=== PATIENT | female | born 1990 | race Caucasian/White ===

== ENCOUNTER 2019-06-29 11:23 | Inpatient (IN) ==
[2019-06-29] MEDS ORDERED: Acetaminophen 325 MG TABLET PO PRN (15:12)
[2019-06-29] MEDS ORDERED: Ondansetron ODT 4 MG TAB.RAPDIS SL PRN (15:12)
[2019-06-29] MEDS ORDERED: Naloxone 0.4 MG/ML INJ IVP PRN ×2 (15:12→18:16)
[2019-06-29] MEDS ORDERED: Ketorolac 15 MG/ML VIAL IVP PRN ×2 (15:12→18:16)
[2019-06-29] MEDS ORDERED: *HR* FentaNYL (PF) 100 MCG/2 ML VIAL ONE (16:20)
[2019-06-29] MEDS ORDERED: *HR* Midazolam HCl 2 MG/2 ML VIAL ONE (16:20)
[2019-06-29] MEDS ORDERED: *HR* Propofol 200 MG/20 ML VIAL IVP ONE (16:20)
[2019-06-29] MEDS ORDERED: Dexamethasone 4 MG/ML VIAL ONE (16:21)
[2019-06-29] MEDS ORDERED: Lidocaine -MPF 2% 2 ML VIAL ONE (16:21)
[2019-06-29] MEDS ORDERED: Ondansetron 4 MG/2 ML VIAL ONE (16:21)
[2019-06-29] MEDS ORDERED: Isovue-300 50ML VIAL ONE (16:34)
[2019-06-29] MEDS ORDERED: *HR* Succinylcholine 200 MG/10 ML VIAL IVP ONE (16:47)
[2019-06-29] MEDS ORDERED: *HR* Rocuronium Bromide 50 MG/5 ML VIAL ONE (16:47)
[2019-06-29] MEDS ORDERED: Lidocaine HCL 4 ML Topical Solution (Laryng-O-Jet Kit Sterile Pak) TP ONE (16:48)
[2019-06-29] MEDS ORDERED: *HR* PHENYLEPHRINE 1,000 MCG/10 ML SYRINGE IVP ONE (17:01)
[2019-06-29] MEDS ORDERED: *HR* Promethazine 25 MG/ML VIAL IVP PRN ×2 (17:25→18:16)
[2019-06-29] MEDS ORDERED: Acetaminophen IV 1,000 MG/100 ML INFUS..BTL IVPB ONE ×2 (17:25→18:16)
[2019-06-29] MEDS ORDERED: *HR* HYDROmorphone (PF) 1 MG/ML SYRINGE IVP PRN ×2 (17:25→18:16)
[2019-06-29] MEDS ORDERED: Ondansetron 4 MG/2 ML VIAL IVP ONE ×2 (17:25→18:16)
[2019-06-29] MEDS ORDERED: *HR* Meperidine 25 MG/ML SYRINGE IVP PRN ×2 (17:25→18:16)
[2019-06-29] MEDS ORDERED: Ketorolac 30 MG/ML VIAL IVP ONE ×2 (17:25→18:16)
[2019-06-29] MEDS ORDERED: Albuterol 2.5 MG/3 ML NEBULIZER IH ONE ×2 (17:25→18:16)
[2019-06-29] MEDS ORDERED: *HR* OxyCODONE Immed Rel 5 MG TABLET PO PRN ×2 (17:25→18:16)
[2019-06-29] MEDS ORDERED: 0.9 % Sodium Chloride 1,000 ML IVC SCH (18:00)
[2019-06-29] MEDS: *HR* HYDROcodone/Acet 5/325 mg TABLET PO PRN (18:36)
[2019-06-29] MEDS: 0.9 % Sodium Chloride 1,000 ML IVC SCH (22:52)
[2019-06-30 04:22] LABS: Hematocrit 30.5 % (35.3-44.9); Hemoglobin 10.6 g/dL (11.5-15.4); Mean Corpuscular HGB Conc 34.8 g/dL (31.6-35.5); Mean Corpuscular Hemoglobin 31.2 pg (28.0-33.3); Mean Corpuscular Volume 89.7 fL (83.0-100.0); Mean Platelet Volume 10.8 fL (9.4-12.4); Platelet Count 120 K/mcL (140-400); Red Cell Distribution Width 12.9 % (11.5-14.5); White Blood Count 13.2 K/mcL (4.3-11.1)
[2019-06-30] MEDS: *HR* HYDROcodone/Acet 5/325 mg TABLET PO PRN ×3 (04:32→12:26)
[2019-06-30 04:38] LABS: BUN/Creatinine Ratio 12 (6-26); Blood Urea Nitrogen 8 mg/dL (6-20); Calcium 8.9 mg/dL (8.6-10.3); Carbon Dioxide 21 mEq/L (23-29); Chloride 114 mEq/L (98-107); Glucose 169 mg/dL (70-105); Osmolality,Calculated 290 (280-300); Potassium 3.8 mEq/L (3.5-5.1); Sodium 139 mEq/L (136-145); eGFR For African Americans > 60 (> 60); eGFR For Non-African Americans > 60 (> 60)
[2019-06-30 05:31] LABS: Lymphocytes # 0.8 K/mcL (0.6-4.6); Monocytes # 0.5 K/mcL (0.0-1.3); Neutrophils # 11.9 K/mcL (1.6-8.9)
[2019-06-30 05:32] LABS: Platelet Estimate Normal (Normal)
[2019-06-30 05:44] LABS: Enterococcus by PCR Not Detected (Not Detect); Staphylococcus by PCR Not Detected (Not Detect); blaKPC Carbapenem-Resist Gene Not Detected (Not Detect); mecA Methicillin-Resist Gene Not Detected (Not Detect); vanA/B Vancomycin-Resist Genes Not Detected (Not Detect)
[2019-06-30 05:45] LABS: Acinetobacter baumannii by PCR Not Detected (Not Detect); Candida albicans by PCR Not Detected (Not Detect); Candida glabrata by PCR Not Detected (Not Detect); Candida krusei by PCR Not Detected (Not Detect); Candida parapsilosis by PCR Not Detected (Not Detect); Candida tropicalis by PCR Not Detected (Not Detect); Enterobacter cloacae Cmplx PCR Not Detected (Not Detect); Escherichia coli by PCR DETECTED (Not Detect); Klebsiella oxytoca by PCR Not Detected (Not Detect); Klebsiella pneumoniae by PCR Not Detected (Not Detect); Proteus by PCR Not Detected (Not Detect); Pseudomonas aeruginosa by PCR Not Detected (Not Detect); Serratia marcescens by PCR Not Detected (Not Detect); Staphylococcus aureus by PCR Not Detected (Not Detect); Streptococcus agalactiae(B)PCR Not Detected (Not Detect); Streptococcus by PCR Not Detected (Not Detect); Streptococcus pneumoniae PCR Not Detected (Not Detect); Streptococcus pyogenes (A) PCR Not Detected (Not Detect)
[2019-06-30] MEDS: 0.9 % Sodium Chloride 1,000 ML IVC SCH ×2 (06:43→18:52)
[2019-06-30] MEDS: levoFLOXacin 750 MG/150 ML 750 MG/150 ML BAG IVPB SCH (08:45)
[2019-06-30] MEDS ORDERED: levoFLOXacin 750 MG/150 ML 750 MG/150 ML BAG IVPB SCH (09:00)
[2019-06-30] MEDS ORDERED: Bisacodyl 10 MG RECTAL SUPPOSITORY RC PRN (16:04)
[2019-06-30] MEDS: *HR* Heparin 5,000 UNIT/ML VIAL SQ SCH (17:21)
[2019-06-30] MEDS ORDERED: *HR* Belladonna Alkaloids/Opium 30 MG RECTAL SUPPOSITORY RC PRN (19:16)
[2019-06-30] MEDS: Promethazine 12.5 MG in 0.9 % Sodium Chloride 50 ML IVPB PRN (20:57)
[2019-07-01] MEDS: 0.9 % Sodium Chloride 1,000 ML IVC SCH ×3 (02:13→18:04)
[2019-07-01] MEDS: *HR* Heparin 5,000 UNIT/ML VIAL SQ SCH ×2 (05:39→18:00)
[2019-07-01] MEDS: levoFLOXacin 750 MG/150 ML 750 MG/150 ML BAG IVPB SCH (08:31)
[2019-07-01] MEDS: Ondansetron ODT 4 MG TAB.RAPDIS SL PRN (18:03)
[2019-07-01] MEDS: Acetaminophen 325 MG TABLET PO PRN (19:22)
[2019-07-02] MEDS: 0.9 % Sodium Chloride 1,000 ML IVC SCH ×6 (02:14→18:57)
[2019-07-02 05:15] LABS: Basophils % 0.2 %; Eosinophils % 0.4 %; Hematocrit 27.9 % (35.3-44.9); Hemoglobin 9.4 g/dL (11.5-15.4); Lymphocytes # 0.5 K/mcL (0.6-4.6); Lymphocytes % 10.6 %; Mean Corpuscular HGB Conc 33.7 g/dL (31.6-35.5); Mean Corpuscular Hemoglobin 30.7 pg (28.0-33.3); Mean Corpuscular Volume 91.2 fL (83.0-100.0); Mean Platelet Volume 9.9 fL (9.4-12.4); Monocytes # 0.5 K/mcL (0.0-1.3); Monocytes % 9.1 %; Neutrophils # 3.9 K/mcL (1.6-8.9); Platelet Count 112 K/mcL (140-400); Red Blood Count 3.06 M/mcL (3.82-4.97); Red Cell Distribution Width 12.7 % (11.5-14.5); Segmented Neutrophils % 78.7 %
[2019-07-02 05:16] LABS: White Blood Count 4.9 K/mcL (4.3-11.1)
[2019-07-02] MEDS: *HR* Heparin 5,000 UNIT/ML VIAL SQ SCH ×2 (06:05→17:07)
[2019-07-02] MEDS: Acetaminophen 325 MG TABLET PO PRN ×2 (06:05→17:19)
[2019-07-02] MEDS: GENTAMICIN IVPB SCH (09:05)
[2019-07-02] MEDS: SODIUM CHLORIDE 0.9% IVPB SCH (09:05)
[2019-07-02] MEDS: *HR* HYDROcodone/Acet 5/325 mg TABLET PO PRN (09:21)
[2019-07-02] MEDS: Ondansetron ODT 4 MG TAB.RAPDIS SL PRN (17:14)
[2019-07-02 20:16] LABS: BUN/Creatinine Ratio 13 (6-26); Blood Urea Nitrogen 8 mg/dL (6-20); eGFR For African Americans > 60 (> 60); eGFR For Non-African Americans > 60 (> 60)
[2019-07-03] MEDS: 0.9 % Sodium Chloride 1,000 ML IVC SCH (02:32)
[2019-07-03] MEDS: *HR* Heparin 5,000 UNIT/ML VIAL SQ SCH ×2 (05:43→17:33)
[2019-07-03] MEDS: Promethazine 12.5 MG in 0.9 % Sodium Chloride 50 ML IVPB PRN (05:44)
[2019-07-03 05:46] LABS: Basophils % 0.4 %; Eosinophils % 0.4 %; Hematocrit 26.3 % (35.3-44.9); Hemoglobin 9.3 g/dL (11.5-15.4); Immature Granulocytes % 0.4 % (0-4); Mean Corpuscular HGB Conc 35.4 g/dL (31.6-35.5); Mean Corpuscular Hemoglobin 31.1 pg (28.0-33.3); Mean Platelet Volume 10.3 fL (9.4-12.4); Monocytes # 0.6 K/mcL (0.0-1.3); Monocytes % 11.7 %; Neutrophils # 3.7 K/mcL (1.6-8.9); Platelet Count 128 K/mcL (140-400); Red Blood Count 2.99 M/mcL (3.82-4.97); Red Cell Distribution Width 12.4 % (11.5-14.5); Segmented Neutrophils % 69.1 %; White Blood Count 5.3 K/mcL (4.3-11.1)
[2019-07-03] MEDS: Acetaminophen 325 MG TABLET PO PRN (05:50)
[2019-07-03 06:08] LABS: BUN/Creatinine Ratio 10 (6-26); Blood Urea Nitrogen 6 mg/dL (6-20); Calcium 8.5 mg/dL (8.6-10.3); Carbon Dioxide 24 mEq/L (23-29); Chloride 108 mEq/L (98-107); Glucose 100 mg/dL (70-105); Osmolality,Calculated 288 (280-300); Potassium 3.2 mEq/L (3.5-5.1); Sodium 140 mEq/L (136-145); eGFR For African Americans > 60 (> 60); eGFR For Non-African Americans > 60 (> 60)
[2019-07-03] MEDS: GENTAMICIN IVPB SCH (08:48)
[2019-07-03] MEDS: SODIUM CHLORIDE 0.9% IVPB SCH (08:48)
[2019-07-03] MEDS: Piperacillin/Tazobactam 3.375 GM in 0.9 % Sodium Chloride Mini Bag 100 ML IVPB SCH ×2 (09:45→15:01)
[2019-07-03] MEDS ORDERED: Aminoglycoside Consult 1 EACH MC ONE (12:39)
[2019-07-03] MEDS: Ondansetron ODT 4 MG TAB.RAPDIS SL PRN (15:01)
[2019-07-04] MEDS: Piperacillin/Tazobactam 3.375 GM in 0.9 % Sodium Chloride Mini Bag 100 ML IVPB SCH ×2 (00:22→08:50)
[2019-07-04] MEDS: Promethazine 12.5 MG in 0.9 % Sodium Chloride 50 ML IVPB PRN (01:45)
[2019-07-04 05:38] LABS: BUN/Creatinine Ratio 14 (6-26); Blood Urea Nitrogen 10 mg/dL (6-20); Calcium 8.7 mg/dL (8.6-10.3); Carbon Dioxide 24 mEq/L (23-29); Chloride 106 mEq/L (98-107); Glucose 95 mg/dL (70-105); Osmolality,Calculated 291 (280-300); Potassium 3.4 mEq/L (3.5-5.1); Sodium 141 mEq/L (136-145); eGFR For African Americans > 60 (> 60); eGFR For Non-African Americans > 60 (> 60)
[2019-07-04] MEDS: *HR* Heparin 5,000 UNIT/ML VIAL SQ SCH (05:53)
[2019-07-04 09:46] LABS: White Blood Count 6.7 K/mcL (4.3-11.1)
[2019-07-04 09:47] LABS: Eosinophils # 0.1 K/mcL (0.0-0.6); Hematocrit 27.4 % (35.3-44.9); Hemoglobin 9.4 g/dL (11.5-15.4); Mean Corpuscular HGB Conc 34.3 g/dL (31.6-35.5); Mean Corpuscular Hemoglobin 30.4 pg (28.0-33.3); Mean Corpuscular Volume 88.7 fL (83.0-100.0); Mean Platelet Volume 10.4 fL (9.4-12.4); Neutrophils # 4.4 K/mcL (1.6-8.9); Platelet Count 143 K/mcL (140-400); Red Blood Count 3.09 M/mcL (3.82-4.97); Red Cell Distribution Width 12.5 % (11.5-14.5)
[2019-07-04 11:13] LABS: Hematocrit 27.2 % (35.3-44.9); Hemoglobin 9.4 g/dL (11.5-15.4)
[2019-07-04 11:21] LABS: INR 1.1; Prothrombin Time 12.8 Seconds (9.4-12.1)
[2019-07-04 11:34] LABS: Lymphocytes # 1.1 K/mcL (0.6-4.6); Platelet Estimate Normal (Normal)
[2019-07-04] MEDS: Ondansetron ODT 4 MG TAB.RAPDIS SL PRN (11:43)
[2019-07-04] MEDS ORDERED: Potassium Chloride Elixir 20 MEQ/15 ML UDC PO ONE (12:16)
[2019-07-04 14:48] LABS: Hematocrit 26.6 % (35.3-44.9); Hemoglobin 9.1 g/dL (11.5-15.4)
[2019-07-04 15:00] VITALS: BP 93/56
== END 2019-07-04 16:44 | disposition home or self-care (01) | DRG 466 ==
LOC: 3ANU
PROVIDERS: ADMIT Internal Medicine Nephrology; ATTEND Internal Medicine